=== PATIENT | female | born 1975 | race African-American/Black ===

== ENCOUNTER 2024-06-18 05:53 | Day surgery (SDC) | payer OTHER ==
[2024-06-14 17:28] VITALS: BMI 29.0
[2024-06-18] MEDS ORDERED: BUPIVACAINE HCL/PF 0.5% (5MG/ML) 10 ML VIAL ONE (13:56)
[2024-06-18] MEDS ORDERED: MIDAZOLAM HCL 2 MG/2 ML SINGLE DOSE VIAL ONE (14:43)
[2024-06-18] MEDS ORDERED: PROPOFOL 20 ML ONE (14:43)
[2024-06-18] MEDS: ceFAZolin SODIUM 1 GM VIAL IVPB ONE (15:00)
[2024-06-18] MEDS ORDERED: EPINEPHrine 1:10,000 (P-F SYR) 1 MG/10 ML DISP.SYRIN ONE (15:15)
[2024-06-18] MEDS ORDERED: ONDANSETRON 4 MG/2 ML VIAL IVPUSH PRN (15:51)
[2024-06-18] MEDS ORDERED: LACTATED RINGERS SOLUTION 1,000 ML IV SCH (16:00)
[2024-06-18 17:10] VITALS: RESP 16
[2024-06-18 18:11] VITALS: BP 136/70; PULSE 70; TEMP 97.4
== END 2024-06-18 18:31 | disposition home or self-care (01) ==
LOC: JASU-SURG 05:53
PROVIDERS: ATTEND Obstetrics & Gynecology
PROC: 0UB74ZZ Excision of Bilateral Fallopian Tubes, Percutaneous Endoscopic Approach (ICD-10-PCS; principal; 2024-06-18 13:00)
DX: Z30.2 Encounter for sterilization (principal)
CPT/HCPCS: 81025; 88305-TC; 94760